=== PATIENT | female | born 1950 | race Caucasian/White ===

== ENCOUNTER → 2017-08-05 | Outpatient (CLI) | payer OTHER ==
[~2017-08-05] MED LIST: CIPR500 PO; CITA20 PO; CLON.5; CLON.5 PO; METR500 PO; MOMENI; MOMENI INH; RALO60 PO; RXOXYACE PO; TRIF2; TRIF2 PO
== END | disposition home or self-care (01) ==
LOC: OLS 16:15
DX: N89.8 Other specified noninflammatory disorders of vagina (principal)
CPT/HCPCS: 87070; 87205

== ENCOUNTER → 2017-08-11 | Outpatient (CLI) | payer OTHER | END | disposition home or self-care (01) | LOC: OLS 15:04 | DX: N89.8 Other specified noninflammatory disorders of vagina (principal) | CPT/HCPCS: 87070; 87205 ==

== ENCOUNTER 2017-09-24 12:38 | Day surgery (SDC) | payer OTHER ==
[~2017-09-24] VITALS: Ht 177.8 cm; Wt 71.6 kg
[~2017-09-24 12:38] MED LIST changes: -MOMENI
== END 2017-09-24 15:55 | disposition home or self-care (01) ==
LOC: ORSCSDS 12:38
PROVIDERS: Podiatrist
PROC: 0QSP04Z Reposition Left Metatarsal with Internal Fixation Device, Open Approach (ICD-10-PCS; principal; 2017-09-24 14:00)
DX: M20.12 Hallux valgus (acquired), left foot (principal); G47.33 Obstructive sleep apnea (adult) (pediatric); N19 Unspecified kidney failure; Z79.899 Other long term (current) drug therapy; Z87.891 Personal history of nicotine dependence
CPT/HCPCS: C1713; J0690; J7120

== ENCOUNTER 2018-02-17 12:46 | Day surgery (SDC) | payer OTHER ==
[~2018-02-17] VITALS: Ht 177.8 cm; Wt 71.4 kg
[2018-02-17] MEDS ORDERED: MOMENI (13:27)
== END 2018-02-17 15:51 | disposition home or self-care (01) ==
LOC: ORSCSDS 12:46
PROVIDERS: Internal Medicine Gastroenterology
PROC: 0DBP8ZX Excision of Rectum, Via Natural or Artificial Opening Endoscopic, Diagnostic (ICD-10-PCS; principal; 2018-02-17 14:15)
DX: Z12.11 Encounter for screening for malignant neoplasm of colon (principal); G47.33 Obstructive sleep apnea (adult) (pediatric); N19 Unspecified kidney failure; Z87.891 Personal history of nicotine dependence; Z79.899 Other long term (current) drug therapy
CPT/HCPCS: J7120

== ENCOUNTER → 2018-06-02 | Outpatient (CLI) | payer OTHER ==
[~2018-06-02] MED LIST changes: +MOMENI
[2018-06-04 14:12] LABS: HPV 16 Negative (Negative); HPV 18 Negative (Negative); HPV OTHER HR TYPES Negative (Negative)
== END | disposition home or self-care (01) ==
LOC: LAB 17:47 → LAB SHORT 17:47
PROVIDERS: Nurse Practitioner Women's Health
DX: Z12.4 Encounter for screening for malignant neoplasm of cervix (principal)
CPT/HCPCS: 87624; G0123

== ENCOUNTER → 2021-04-16 | Outpatient (CLI) | payer MEDICARE, OTHER ==
[2021-04-16 12:02] LABS: Source, Urine Clean Catch
[2021-04-16 13:29] LABS: Appearance, Urine Clear (Clear); Bilirubin, Urine Neg (Neg); Blood, Urine Neg (Neg); Color, Urine Yellow (P-Yellow); Glucose Qualitative, Urine Neg (Neg); Ketones, Urine Neg (Neg); Leukocyte Esterase, Urine Neg (Neg); Nitrite, Urine Neg (Neg); Protein, Urine Neg (Neg); Urobilinogen, Urine NORM (Normal)
== END ==
LOC: LAB SHORT 11:54 → LAB 11:54
PROVIDERS: Internal Medicine
DX: R35.0 Frequency of micturition (principal)
CPT/HCPCS: 81003